=== PATIENT | female | born 1975 | race Hispanic/Latino ===

== ENCOUNTER 2024-06-30 09:06 | Day surgery (SDC) | payer SELFPAY ==
[2024-06-24 10:45] LABS: Absolute Basophils 0.1 K/uL (0-0.5); Absolute Eosinophils 0.1 K/uL (0-0.5); Absolute Lymphocytes (CBC) 2.4 K/uL (0.7-4.9); Absolute Monocytes 0.5 K/uL (0.1-1.3); Absolute Neutrophil 3.2 K/uL (1.8-8.0); Basophils % 1.1 % (0-1.3); Hematocrit 36.4 % (36.0-45.0); Hemoglobin 12.5 g/dL (12.0-15.0); Lymphocytes % 38.7 % (15.3-44.8); MCH 30.7 pg (27.0-35.0); MCHC 34.5 g/dL (32.0-36.0); MPV 8.7 fL (7.6-11.3); Monocytes % 7.7 % (3.3-12.3); Neutrophils % 50.5 % (41.7-73.7); Nucleated Red Blood Cells % 0.1 % (0-0); Platelets 238 thou/uL (152-406); RBC Red Blood Cell Count 4.08 M/uL (3.86-4.86); Red Cell Distribution Width 13.9 % (12.1-15.2)
[2024-06-24 10:56] LABS: Anion Gap 8.2 mEq/L (5.0-15.0); Potassium 4.2 mEq/L (3.5-5.1)
[2024-06-24 11:03] LABS: PT Prothrombin Time 10.9 SECONDS (10-13.0); PTT, Activated Partial Thromb 28.2 SECONDS (27.2-37.4); Protime INR 0.95
--- NOTE | 2024-06-24 12:59 | RAD REPORT ---
EXAMINATION: TWO VIEW CHEST XR CLINICAL INDICATION: Female, 48 years old. [facility] Pre-op pending rotator cuff repair. Hypertension TECHNIQUE: 2 view radiographs of the chest were performed. COMPARISON: No prior exam. FINDINGS: The lungs are well inflated and clear. No pneumothorax or sizable effusion. The heart is normal in si ze. Mediastinal contours are unremarkable. IMPRESSION: No acute or significant abnormalities.
--- NOTE | 2024-06-25 14:41 | EKG ---
Test Date: 2024-06-24 Test Time: 10:28:49 Front Office Attendant: DWAINE MEASUREMENT RESULTS: Intervals: Rate: 62 WY: 128 QRSD: 70 QT: 398 QTc: 403 [place]: P: 31 WY: 128 QRS: 29 T: -7 INTERPRETIVE STATEMENTS: Normal sinus rhythm Possible Anterior infarct, age undetermined Abnormal ECG No previous ECG available for comparison Electronically Signed On 06-25-24 14:40:04 CDT by Ritesh So
[2024-06-30] MEDS: Ringers Lactate 1,000 ML IV ONE ×2 (09:30→13:30)
[2024-06-30] MEDS ORDERED: LIDOCAINE 1% MPF 5 ML VIAL ONE ×2 (10:07→10:40)
[2024-06-30] MEDS ORDERED: MIDAZOLAM HCL 2 MG/2 ML INJ ONE (10:07)
[2024-06-30] MEDS ORDERED: EPINEPHRINE 1 MG/ML VIAL ONE (10:08)
[2024-06-30] MEDS ORDERED: FENTANYL CITR 100 MCG/2 ML ONE (10:08)
[2024-06-30] MEDS ORDERED: dexAMETHasone 4 MG/ML VIAL ONE (10:08)
[2024-06-30] MEDS ORDERED: propofoL 200 MG/20 ML VIAL IV ONE (10:40)
[2024-06-30] MEDS ORDERED: ROCURONIUM 50 MG/5 ML VIAL IV ONE (10:40)
[2024-06-30] MEDS ORDERED: ONDANSETRON 4 MG/2 ML VIAL ONE (10:40)
[2024-06-30] MEDS: CEFAZOLIN SODIUM 1 GM/VIAL ONE (12:55)
[2024-06-30] MEDS: EPINEPHRINE 1 MG/ML VIAL ONE (13:14)
--- NOTE | 2024-06-30 14:24 | P.BOP ---
Preoperative diagnosis: Left shoulder rotator cuff tear, impingement syndrome Postoperative diagnosis: Same Primary procedure: Left shoulder arthroscopic rotator cuff repair Secondary procedure: Left shoulder arthroscopic subacromial decompression Manager Academic: NONE,NONE Estimated blood loss: 5 cc Specimen: None Anesthesia: General Complications: None Implants: 1- 5.5 mm Arthrex corkscrew, 2- 4.75 mm Arthrex swivel lock Fluids & blood products: Per anesthesia record Transferred to: Recovery Room Condition: Good
--- NOTE | 2024-06-30 14:33 | P.OP ---
Preoperative diagnosis: Left shoulder rotator cuff tear, impingement syndrome Postoperative diagnosis: Same Primary procedure: Left shoulder arthroscopic rotator cuff repair Secondary procedure: Left shoulder arthroscopic subacromial decompression Anesthesia: General Estimated blood loss: 5 cc Specimen: None Operative Technique: Indication For Procedure: Antonia is a 48-year-old female who presented to my clinic with signs, symptoms, and MRI findings consistent with a left shoulder full-thickness rotator cuff tear. I discussed with the patient risks and benefits associated with operative and nonoperative treatment. She expressed understanding and elected to proceed with operative treatment. Description Of Procedure: After informed consent was obtained, the patient was identified in the preoperative holding area. The left upper extremity was marked. The patient then was brought to the PACU where she underwent a left- sided interscalene block performed by Anesthesia. The patient was brought back to the operating room, transferred to the operative table in supine fashion, placed under general endotracheal anesthesia. She was then placed in a beach chair position with her extremities well padded. The left upper extremity was then prepped and draped in usual sterile fashion. A time-out was initiated. The correct patient and procedure were performed and identified. The patient did receive preoperative prophylactic antibiotics. Via the posterior portal position, a spinal needle was introduced in the glenohumeral joint and the shoulder was injected with 30 cc of normal saline to distend the capsule. A stab incision was made posteriorly and a posterior portal was created. Arthroscope was brought in via the posterior portal position and diagnostic arth roscopy was performed. Under direct visualization, an anterior portal and cannula were created. The superior labrum was intact and stable to probe. There was no significant instability of the superior labrum or anterior posterior labrum, which were stable to probe. There was no fraying or tenosynovitis of the biceps tendon both intra-articular and extra-articular. Subscapularis was found to be stable and intact to probe. There were no loose bodies within the axillary pouch. The patient was noted to have a full- thickness tear of the anterior aspect of the supraspinatus. A lateral portal was created and an arthroscopic shaver was then used to debride the greater tuberosity. The rotator cuff tear was noted to reduce to the greater tuberosity. Greater tuberosity was debrided using the arthroscopic shaver to create a bleeding bony bed. The undersurface of the rotator cuff tear was also debrided using the arthroscopic shaver to remove any unhealthy tissue. The arthroscope was then brought in the subacromial space. A subacromial bursectomy was performed using arthroscopic shaver. The patient was noted to have a full- thickness tear of the supraspinatus, which was mildly retracted. The tear was reducible to the greater tuberosity. A lateral stab incision was made just lateral to the acromion. A punch was then placed, was then used to place a 5.5 mm double loaded Arthrex corkscrew. Sutures were then passed through the rotator cuff tear in anterior-posterior fashion, tied in a horizontal mattress fashion. The suture lines were then crisscrossed and 2 lateral Arthrex SwiveLock anchors were placed to increase surface area of the reduction onto the greater tuberosity of the rotator cuff tendon. The remaining suture limbs were then cut. There was some significant fraying of a coracoacromial ligament as well as some undersurface spurring of the acromion and acromioplasty was performed using a radiofrequency ablator and an arthroscopic bur. Arthroscopic instruments were then removed without complication. Wounds were then irrigated thoroughly with normal saline. Subcutaneous tissue was approximated using a 2-0 Vicryl. Portals were approximated using a 3-0 Monocryl. Sterile dressings were applied. Shoulder immobilizer was placed. The patient was awakened and transferred to PACU in stable condition. Postoperative Plan: Antonia will be nonweightbearing in a shoulder immobilizer for 6 weeks. She will follow the medium rotator cuff repair protocol 4 weeks postoperatively. Complications: None Implants: 1-5.5 mm Arthrex corkscrew, 2-4.75 mm Arthrex swivel lock Fluids & blood products: Per anesthesia record Transferred to: Recovery Room Condition: Good
[2024-06-30] MEDS: ONDANSETRON 4 MG/2 ML VIAL ONE (14:38)
[2024-06-30 14:42] VITALS: O2SAT 100
[2024-06-30] MEDS: PROMETHAZINE INJ 25 MG/ML AMP ONE (14:47)
[2024-06-30] MEDS: MEPERIDINE HCL 25 MG/ML SYR ONE (14:52)
--- NOTE | 2024-06-30 14:52 | RAD REPORT ---
EXAM:Shoulder 1 View HISTORY: s/p L RCR, SAD COMPARISON: None IMPRESSION: Single view of the left shoulder. No acute fracture identified. Postoperative changes in the soft tissues.
[2024-06-30 16:04] VITALS: BP 136/88; TEMP 97
== END 2024-06-30 16:14 | disposition home or self-care (01) ==
LOC: PRE 09:06 → OR 16:14
PROVIDERS: ATTEND Orthopaedic Surgery Sports Medicine
PROC: 0LM24ZZ Reattachment of Left Shoulder Tendon, Percutaneous Endoscopic Approach (ICD-10-PCS; 2024-06-30)
PROC: 0RNK4ZZ Release Left Shoulder Joint, Percutaneous Endoscopic Approach (ICD-10-PCS; principal; 2024-06-30 12:15)
DX: M75.102 Unspecified rotator cuff tear or rupture of left shoulder, not specified as traumatic (principal); M75.22 Bicipital tendinitis, left shoulder; M75.42 Impingement syndrome of left shoulder
CPT/HCPCS: 36415; 71046; 73020; 80048; 85025; 85610; 85730; 93005; J0171; J0690; J1100; J2003; J2175; J2250; J2405; J2550; J2704; J3010; J7120